=== PATIENT | male | born 1985 | race Hispanic/Latino ===

== ENCOUNTER 2020-03-26 12:30 | Emergency (ER) | payer OTHER ==
[~2020-03-26] VITALS: Ht 182.9 cm; Wt 105.0 kg
[2020-03-26] MEDS ORDERED: PREDNISONE20 MG PO (14:25)
[2020-03-26] MEDS ORDERED: BENADRYL 50MG C50 MG PO (14:25)
[2020-03-26] MEDS ORDERED: PEPCID20 MG PO (14:25)
[2020-03-26 14:40] VITALS: BP 139/80
== END 2020-03-26 14:40 | disposition home or self-care (01) | DRG 918 ==
LOC: ED 12:30
DX: T63.441A Toxic effect of venom of bees, accidental (unintentional), initial encounter (principal)